=== PATIENT | female | born 1975 ===

== ENCOUNTER 2020-10-23 06:57 | Day surgery (SDC) | payer OTHER, SELFPAY ==
[~2020-10-23] VITALS: Ht 165.1 cm; Wt 91.6 kg
[2020-10-23] MEDS ORDERED: fentaNYL citrate 0.05 MG/ML VIAL ONE (08:40)
[2020-10-23] MEDS ORDERED: MIDAZOLAM 5 MG/5 ML VIAL ONE (08:40)
[2020-10-23] MEDS ORDERED: LIDOCAINE 2% 100 MG/5 ML UJET TP ONE (08:40)
[2020-10-23] MEDS ORDERED: METOCLOPRAMIDE 10 MG/2 ML INJ VIAL ONE (10:19)
[2020-10-23] MEDS ORDERED: LIDOCAINE MPF 2% 100 MG/5 ML VIAL INJ ONE (10:19)
[2020-10-23] MEDS ORDERED: KETAMINE 500 MG/5 ML VIAL ONE (10:19)
[2020-10-23] MEDS ORDERED: PROPOFOL 200 MG/20 ML VIAL IV ONE (10:19)
[2020-10-23] MEDS ORDERED: MIDAZOLAM 2 MG/2 ML VIAL ONE (10:19)
[2020-10-23] MEDS ORDERED: ONDANSETRON 4 MG/2 ML VIAL ONE (10:19)
[2020-10-23] MEDS ORDERED: LACTATED RINGERS 1,000 ML IV SCH (10:45)
[2020-10-23] MEDS ORDERED: ONDANSETRON 4 MG/2 ML VIAL IVP PRN (10:45)
[2020-10-23] MEDS ORDERED: diphenhydrAMINE 50 MG/ML VIAL IVP PRN (10:45)
[2020-10-23] MEDS ORDERED: MEPERIDINE 25 MG/ML SYR IVP PRN (10:45)
== END 2020-10-23 12:15 | disposition home or self-care (01) ==
LOC: MMU 06:57 → MDS 06:57
PROVIDERS: ATTEND Internal Medicine Gastroenterology
DX: R14.0 Abdominal distension (gaseous) (principal); Z80.0 Family history of malignant neoplasm of digestive organs; K30 Functional dyspepsia; K21.9 Gastro-esophageal reflux disease without esophagitis; E11.9 Type 2 diabetes mellitus without complications; G47.33 Obstructive sleep apnea (adult) (pediatric); F41.9 Anxiety disorder, unspecified; E66.9 Obesity, unspecified; Z90.710 Acquired absence of both cervix and uterus; Z98.890 Other specified postprocedural states; Z20.822 Contact with and (suspected) exposure to COVID-19; Z79.899 Other long term (current) drug therapy; Z79.4 Long term (current) use of insulin; Z99.89 Dependence on other enabling machines and devices
CPT/HCPCS: 36415; 43239; 45378; 86677; J2001; J2250; J2405; J2704; J2765; U0003; J3010